=== PATIENT | female | born 1950 | race Caucasian/White ===

== ENCOUNTER 2016-10-12 09:16 | Outpatient (CLI) | payer MEDICARE ==
[2013-11-12 09:27] VITALS: BP 129/70
== END 2016-10-12 09:17 ==
LOC: LAB 09:16
PROVIDERS: ATTEND Nurse Practitioner Family
DX: R19.4 Change in bowel habit (principal)
CPT/HCPCS: 87045; 87046; 87177; 87328; 87329; 87427; 87493; 89055

== ENCOUNTER 2016-11-03 12:21 | Outpatient (CLI) | payer MEDICARE ==
[2013-11-12 09:27] VITALS: BP 129/70
== END 2016-11-03 12:22 ==
LOC: LAB 12:21
PROVIDERS: ATTEND Nurse Practitioner Family
DX: K52.9 Noninfective gastroenteritis and colitis, unspecified (principal)
CPT/HCPCS: 36415; 82784; 83516; 85651; 86140; 86255; 86671

== ENCOUNTER 2017-06-08 12:59 | Outpatient (CLI) | payer MEDICARE ==
[2013-11-12 09:27] VITALS: BP 129/70
[2017-06-09 08:41] LABS: ADENOVIRUS F 40/41 Not Detected (Not Detected); ASTROVIRUS Not Detected (Not Detected); C. DIFFICILE (TOXIN A/B) Not Detected (Not Detected); CRYPTOSPORIDIUM Not Detected (Not Detected); CYCLOSPORA CAYETANENSIS Not Detected (Not Detected); ENTAMOEBA HISTOLYTICA Not Detected (Not Detected); GIARDIA LAMBLIA Not Detected (Not Detected); ROTAVIRUS A Not Detected (Not Detected); SAPOVIRUS Not Detected (Not Detected); VIBRIO CHOLERAE Not Detected (Not Detected)
== END 2017-06-08 13:10 ==
LOC: LAB 12:59
PROVIDERS: ATTEND Internal Medicine Gastroenterology
DX: R19.7 Diarrhea, unspecified (principal)
CPT/HCPCS: 87507

== ENCOUNTER 2019-04-24 10:02 | Outpatient (CLI) | payer MEDICARE ==
[2013-11-12 09:27] VITALS: BP 129/70
--- NOTE | 2019-04-29 11:24 | CONSULTATION REPORT ---
DATE OF CONSULTATION: 04/24/2019 SUBJECTIVE: Mary presented to clinic today for possible ingrown toenail on the right great toe lateral nail border. She states that she was able to trim it back the other day and as soon as she tried trimming it back with trimming her toes she started having some pain on the right great toe lateral nail border, but it is less painful at this time. She states she is a diabetic, but she did not give us her A1c today as we did not ask her that today. She does state that her blood sugar was 87 this morning. She is also on Eliquis and had her last dose today and has a significant DVT and pulmonary embolism history of I believe at least two of each of those in the past with the most recent I believe being a pulmonary embolism in 2016. She is on Eliquis at this time. The patient does not admit to any problems or issues otherwise in the feet except for long toenails and she would like to have those trimmed and would like to begin having regular visits to have her feet checked as she is a diabetic patient and has a hard time trimming her toenails. She does not admit to any fevers, chills, nausea, vomiting, shortness of breath or chest pain today. The patient presented today as a first visit with me with a significant history of a broken left ankle in May 1994, two DVTs in the left leg after the cast was taken off at the hospital for four days in August 1994, hysterectomy in 1999, perforated sigmoid diverticulitis in May 2003, take down of the colostomy in August 2003, hernia operation in 2005, another hernia operation in 2009, a double pulmonary embolism in August 2016 and a colonoscopy and endoscopy with Dr. Patel in March 2017. The patient also is taking currently a probiotic one daily, Eliquis 5 mg b.i.d., metoprolol succinate ER 50 mg one daily, Losartan potassium 100 mg one daily, glimepiride 4 mg b.i.d. and Basaglar insulin pen 35 mg daily. Her primary care is Kiesha Field NP and she heard of me through her when I spoke at the [facility] awhile back. She denies any known allergies as well. OBJECTIVE: Vitals: Temperature 98.2 degrees Fahrenheit, heart rate 89, respiration rate 18, blood pressure 178/91. O2 saturation is 97% on room air. We discussed the blood pressure being elevated today and she said that she was seeing Kiesha Field about this today to discuss this further and have medication changes done. She was encouraged to mention this blood pressure to Kiesha Field today when she sees her. Vascular: 2+ DP right foot, 1+ DP left foot, and 1+ PT bilaterally. There is no edema noted. Capillary refill time is less than 3 seconds to the toes bilaterally. Dermatologic: Toenails are long bilaterally 1 through 5. There are no open lesions or hyperkeratotic lesions noted or erythema or ecchymosis noted bilateral feet or ankles. Musculoskeletal: There is very mild pain on palpation noted on the lateral border of the right great toe only at the very distal tip. It is obvious that the nail was pressing on the skin, but there is no open lesion noted here. There are no signs of infection with any erythema or drainage of any kind or warmth. There are no other skin concerns noted bilateral feet and again there is no other pain on palpation noted bilateral feet outside of that small area. Neurologic: Light touch sensation is intact to the toes bilaterally. The patient does admit mild burning and tingling at times which she has not spoken with Lenka Field about yet. ASSESSMENT AND PLAN: 1. Dermatophytosis of nails bilaterally. 2. Diabetes mellitus type 2. PROCEDURE #1: Toenails 1 through 5 were trimmed bilateral feet without incident today. This was done upon the patient's request today. Her feet were checked thoroughly and we will do a more thorough check when we see her in the [facility] for her next visit for a regular diabetic foot check and toenail trimming. The patient denied any history of wounds and we will continue taking care of these feet as she does admit some burning and tingling at times. We will have her return to clinic in three months in the [facility] for regular toenail trimming and foot checks. Rafael Burden D.P.M. /Accutype [id number] & [id number]/mab MTDD
== END 2019-04-24 10:40 ==
LOC: POD 10:02
PROVIDERS: ATTEND Podiatrist Foot & Ankle Surgery
DX: B35.1 Tinea unguium (principal); E11.9 Type 2 diabetes mellitus without complications
CPT/HCPCS: 11719; 99213; G0463; A4554